=== PATIENT | female | born 1970 | race Caucasian/White ===

== ENCOUNTER 2017-10-12 07:55 | Emergency (ER) | payer OTHER ==
[~2017-10-12] VITALS: Ht 162.6 cm; Wt 54.4 kg
[2017-10-12] MEDS ORDERED: ONDANSETRON HCL 4 MG/2 ML VIAL IV ONE ×2 (08:45→12:30)
[2017-10-12] MEDS ORDERED: SODIUM CHLORIDE 0.9% 1,000 ML IV ONE (08:45)
[2017-10-12] MEDS ORDERED: NALBUPHINE HCL 10 MG/1ml INJECTION IV ONE (08:45)
[2017-10-12] MEDS ORDERED: MORPHINE SULFATE 4 MG/ML SYR/VIAL IV ONE ×2 (09:00→12:30)
[2017-10-12 09:58] LABS: Basophils # (auto) 0 uL; Eosinophils # (auto) 0 uL; Hematocrit 46.1 % (36.0-46.0); Hemoglobin 15.1 g/dL (12.2-16.2); Lymphocytes # (auto) 1.4 uL; Lymphocytes % (auto) 15.9 % (10.0-50.0); Mean Corpuscular Hemoglobin 28.2 pg (28.0-32.0); Mean Corpuscular Hgb Conc. 32.7 g/dL (32.0-36.0); Mean Corpuscular Volume 86.3 fL (80.0-100.0); Monocytes # (auto) 0.5 uL; Neutrophils # (auto) 6.9 uL; Neutrophils % (auto) 78.1 % (37.0-80.0); Platelet Count (auto) 429 10^3/uL (140-450); Red Blood Cells 5.34 10^6/uL (4.0-5.20); Red Cell Distribution Width 13.7 % (11.8-14.3); White Blood Cell 8.8 10^3/uL (4.4-10.8)
[2017-10-12 10:26] LABS: Albumin 3.2 g/dL (3.4-5.0); BUN/Creatinine Ratio 13.2; Bilirubin, Total 0.3 mg/dL (0.2-1.0); Calcium 8.9 mg/dL (8.5-10.1); Total Protein 7.5 g/dL (6.4-8.2)
[2017-10-12 10:39] LABS: Urine Bacteria NONE SEEN /hpf (None Seen); Urine Blood 2+ /uL (Negative); Urine Specific Gravity 1.009 (1.001-1.035); Urine WBC 1 /hpf (0 - 5)
[2017-10-12 11:04] LABS: Alcohol, Urine < 3.0 mg/dL (0-5); Amphetamine Screen, Urine NEGATIVE (NEGATIVE); Barbiturate Scree,Urine NEGATIVE (NEGATIVE); Benzodiazephine Screen, Urine NEGATIVE (NEGATIVE); Cannabinoid Screen, Urine POSITIVE (NEGATIVE); Cocaine Screen, Urine NEGATIVE (NEGATIVE); Opiate Scree,Urine POSITIVE (NEGATIVE); Phencyclidine Screen, Urine NEGATIVE (NEGATIVE)
[2017-10-12 12:39] VITALS: BP 127/71
== END 2017-10-12 13:17 | disposition home or self-care (01) ==
LOC: EDUNIT# 07:55 → ER 07:55
DX: N20.0 Calculus of kidney (principal); M19.90 Unspecified osteoarthritis, unspecified site; F17.210 Nicotine dependence, cigarettes, uncomplicated; F19.10 Other psychoactive substance abuse, uncomplicated; Z90.49 Acquired absence of other specified parts of digestive tract; Z90.710 Acquired absence of both cervix and uterus; Z87.442 Personal history of urinary calculi
CPT/HCPCS: 36415; 74176; 80053; 80307; 81001; 82150; 83690; 85025; 96361; 96374; 96375; 96376; 99285; J2270; J2300; J2405; J7030

== ENCOUNTER 2019-11-10 19:14 | Inpatient (IN) | payer MEDICAID, OTHER ==
[~2019-11-10] VITALS: Ht 160 cm; Wt 55.3 kg
[2019-11-10] MEDS ORDERED: ETOMIDATE (2MG/ML) 20ML VIAL IV ONE ×2 (19:24→21:45)
[2019-11-10] MEDS ORDERED: SUCCINYLCHOLINE CHLORIDE 20 MG/ML 10ML VIAL IV ONE ×2 (19:25→21:45)
[2019-11-10] MEDS ORDERED: SODIUM CHLORIDE 0.9% 1,000 ML IVB ONE (19:25)
[2019-11-10] MEDS: MIDAZOLAM DRIP 50 mg/50mL 50 ML IV SCH (19:37)
[2019-11-10] MEDS ORDERED: MIDAZOLAM DRIP 50 mg/50mL 50 ML IV ONE (19:40)
[2019-11-10] MEDS ORDERED: NOREPINEPHRINE 8 MG/250ML KIT 250 ML IV ONE (19:40)
[2019-11-10] MEDS: fentaNYL Drip 2500mCg/250mlNS 250 ML IV SCH (19:42)
[2019-11-10] MEDS ORDERED: fentaNYL Drip 2500mCg/250mlNS 250 ML IV ONE (19:47)
[2019-11-10] MEDS ORDERED: PROPOFOL 100 ML IV ONE (20:19)
[2019-11-10] MEDS: PROPOFOL 100 ML IV SCH (20:20)
[2019-11-10] MEDS: NOREPINEPHRINE 8 MG/250ML KIT 250 ML IV SCH (20:55)
[2019-11-10 21:47] LABS: Hematocrit 31.9 % (36.0-46.0); Hemoglobin 10.7 g/dL (12.2-16.2); Mean Corpuscular Hemoglobin 29.6 pg (28.0-32.0); Mean Corpuscular Hgb Conc. 33.5 g/dL (32.0-36.0); Mean Corpuscular Volume 88.3 fL (80.0-100.0); Platelet Count (auto) 154 10^3/uL (140-450); Red Blood Cells 3.61 10^6/uL (4.0-5.20); Red Cell Distribution Width 14.5 % (11.8-14.3); White Blood Cell 12.2 10^3/uL (4.4-10.8)
[2019-11-10 22:00] LABS: Basophils % (manual) 0 (0.0-2.0); Blast Cells 0; Eosinophils % (manual) 0 (0-7); Metamyelocytes % 0; Myelocytes % 0; Promyelocytes % 0; Reactive Lymphocytes 0
[2019-11-10 22:07] LABS: Albumin 2.3 g/dL (3.4-5.0); Calcium 7.2 mg/dL (8.5-10.1); Magnesium 1.9 mg/dL (1.6-2.6); Potassium 3.7 mmol/L (3.5-5.1)
[2019-11-10 22:18] LABS: BUN/Creatinine Ratio 16.7; Bilirubin, Total 0.8 mg/dL (0.2-1.0)
[2019-11-10 22:23] LABS: Band Neutrophils % (manual) 3; Lymphocytes % (manual) 3 (10.0-50.0); Monocytes % (manual) 2 (0-12)
[2019-11-10 22:27] LABS: INR 1.34 (0.9-1.15); Partial Thromboplastin Time 28.5 sec (23.64-32.05)
[2019-11-10 23:56] VITALS: BP 117/88
[2019-11-11] VITALS (48 sets, daily range): BP systolic 89–119; BP diastolic 53–87
[2019-11-11 01:00] LABS: Urine Bacteria FEW /hpf (None Seen); Urine Blood Negative /uL (Negative); Urine Hyaline Cast MANY /lpf (0 - 2); Urine Mucus FEW (None Seen); Urine Specific Gravity 1.026 (1.001-1.035); Urine WBC 5 /hpf (0 - 5)
[2019-11-11 01:01] LABS: Urine Amorphous Crystal FEW /hpf (None Seen)
[2019-11-11 01:13] LABS: Amphetamine Screen, Urine NEGATIVE (NEGATIVE); Barbiturate Scree,Urine POSITIVE (NEGATIVE); Benzodiazephine Screen, Urine NEGATIVE (NEGATIVE); Cannabinoid Screen, Urine NEGATIVE (NEGATIVE); Cocaine Screen, Urine NEGATIVE (NEGATIVE); Phencyclidine Screen, Urine NEGATIVE (NEGATIVE)
[2019-11-11 01:21] LABS: Opiate Scree,Urine POSITIVE (NEGATIVE)
[2019-11-11 01:28] LABS: Alcohol, Urine < 3.0 mg/dL (0-10)
[2019-11-11] MEDS ORDERED: SODIUM CHLORIDE 0.9% 1,000 ML IV SCH ×2 (02:46→15:30)
[2019-11-11] MEDS ORDERED: ACETAMINOPHEN 325 MG TAB PO PRN (03:00)
[2019-11-11] MEDS ORDERED: NITROGLYCERIN 0.4 MG SL TAB SL PRN (03:00)
[2019-11-11] MEDS ORDERED: VANCOMYCIN PER PHARMACY 0 MG IV SCH (03:00)
[2019-11-11] MEDS ORDERED: ONDANSETRON HCL 4 MG/2 ML VIAL IV PRN (03:00)
[2019-11-11] MEDS ORDERED: MORPHINE SULF INJ 2 MG/ML SYRINGE 1ML IV PRN (03:00)
[2019-11-11] MEDS ORDERED: IOHEXOL 350 MG/ML 100ML IJ ONE (03:08)
[2019-11-11] MEDS ORDERED: VANCOMYCIN 1GM/250ML 250 ML IV ONE (03:15)
[2019-11-11 03:58] LABS: Lactate Dehydrogenase 961 U/L (84-246)
[2019-11-11 03:59] LABS: CRP High Sensitivity > 19 mg/dL (< 0.3)
[2019-11-11] MEDS ORDERED: ALBUTEROL SULF HFA 90MCG INH 200DOSE IN SCH (06:00)
[2019-11-11] MEDS: PIPERACILLIN-TAZOB 3.375GM 100 ML IV SCH ×3 (06:05→18:48)
[2019-11-11] MEDS ORDERED: CHOLECALCIFEROL (VITD3) 1,000IU=25mCg TAB PO SCH (10:00)
[2019-11-11] MEDS ORDERED: ENOXAPARIN SOD 40 MG/0.4 ML SYRINGE SC SCH (10:00)
[2019-11-11] MEDS ORDERED: ZINC SULFATE 220mg CAP or TAB PO SCH (10:00)
[2019-11-11] MEDS: ENOXAPARIN SOD 40 MG/0.4 ML SYRINGE SC SCH (10:43)
--- NOTE | 2019-11-11 14:43 | NUR ---
RT NOTE: ETS FOR SMALL, THICK, CREAM/WALL COLORED SECRETIONS. GAG/COUGH NOTED.
--- NOTE | 2019-11-11 14:45 | NUR ---
RT NOTE: PT. TRANSFERRED TO ICU 105 WITH JORDAN BALLESTEROS WITHOUT INCIDENT. ART THERAPY CERTIFIED SUPERVISOR IN PLACE. PT. BAGGED WITH 15L O2. PT. PLACED ON VENT IN 105 WITH ORDERED SETTINGS.
--- NOTE | 2019-11-11 15:00 | NUR ---
Admit to ICU from ER on vent CASE,VIOLET admitted to ICU via gurney on potline monitor, intubated and being bagged by Respiratory Therapist. Patient transferred to bed, connected to mechanical ventilator by therapist, SOLANGE at bedside. Patient connected to ICU monitoring, weighed by bedscale, oriented to Carmen Shook, primary RN, unit, ventilator and sedation. Patient noted to be using accessory muscles and increased work of breathing along with increased respirations, sedation will be increased per protocol. Comfort measures applied, fall and safety precautions in place. Rectal temperature reading 100.2, cooling measures applied, will continue to monitor.
[2019-11-11] MEDS: PROPOFOL 100 ML IV SCH ×2 (15:31→21:36)
[2019-11-11] MEDS: MIDAZOLAM DRIP 50 mg/50mL 50 ML IV SCH ×3 (15:32→21:33)
--- NOTE | 2019-11-11 15:48 | NUR ---
PALS SPECIALIST AT BEDSIDE
[2019-11-11] MEDS: VANCOMYCIN 1GM/250ML 250 ML IV SCH (16:38)
--- NOTE | 2019-11-11 16:45 | NUR ---
CONTACT FAMILY FOR COMPLETION OF ADMISSION ASSESSMENT SPOKE WITH PATIENT'S SPOUSE LEANN AFTER PASSWORD VERIFICATION. LEANN PROVIDED NECESSARY INFORMATION, HOWEVER, UNABLE TO PROVIDE LIST OF CURRENT MEDICATIONS - LEANN STATED "I CANNOT FIND THE BOTTLES, MAYBE THEY ARE IN HER PURSE". WILL ENDORSE MEDICATION RECONCILIATION TO MARKETING PR INTERN RN.
[2019-11-11] MEDS: IPRATROPIUM BROM 0.5 MG/2.5ML INH SOL NEB SCH ×2 (17:42→21:58)
[2019-11-11] MEDS: ALBUTEROL SULF 2.5 MG/0.5ML(0.5%) NEB SOLN NEB SCH ×2 (17:42→21:58)
[2019-11-11] MEDS: fentaNYL Drip 2500mCg/250mlNS 250 ML IV SCH (18:01)
--- NOTE | 2019-11-11 19:00 | NUR ---
END OF SHIFT NOTE PATIENT MECHANICALLY VENTILATED, SEDATED, NO DISTRESS NOTED, RESPIRATIONS EVEN AND UNLABORED. NO S/S OF PAIN OR DISCOMFORT NOTED. FALL AND SAFETY PRECAUTIONS IN PLACE, ENDORSED CONTINUED CARE TO MANAGER SUPPLY CHAIN PLANNING RN.
[2019-11-11] MEDS: NOREPINEPHRINE 8 MG/250ML KIT 250 ML IV SCH (19:35)
--- NOTE | 2019-11-11 20:00 | NUR ---
OPEN ASSUMED CARE OF FEMALE PT ORALLY INTUBATED. PT SEDATED ON VERSED GTT 15 MG/HR, FENTANYL GTT 200 MCG/HR, AND PROPOFOL GTT 50 MCG/KG/MIN. PT GRIMACE TO TACTILE STIMULI OTHERWISE NON RESPONSIVE. SINUS TACH ON SPECIAL EDUCATION AIDE. LEVOPHED GTT INFUSING AT 3 MCG/MIN. GTT'S RUNNING INTO R SUBCLAVIAN TLC ALL PORTS PATENT. DRESSING CDI. 22 G IV'S PRESENT TO FRANCISCA FEET S/L B &P. OGT IN PLACE CLAMPED. R. UPPER LATERAL CHEST TUBE IN PLACE TO 20 CM SUCTION. NO DRAINAGE OBSERVED. NO AIR LEAK PRESENT. NO CREPITUS PALPATED. ATRIUM COLLECTION UNIT SECURED TO FLOOR. DRESSING TO CHEST TUBE INSERTIONS SITE CDI. VÁZQUEZ TO GRAVITY DRAINING CLEAR YELLOW URINE. BED IN LOWEST LOCKED POSITION. SIDE RAILS UP X 2. HOB ELEVATED 30 DEGREES. ORAL CARE PROVIDED. PT REPOSITIONED WITH PILLOWS USED TO OFFLOAD BONY PROMINENCES. NO INDICATION OF PAIN OBSERVED. PT IN FULL VIEW OF RN STATION. WILL CONTINUE TO MONITOR.
--- NOTE | 2019-11-11 20:45 | NUR ---
FAMILY CALL PT SISTER CALLED UNIT FOR UPDATE ON PT CONDITION. AFTER PASSWORD FOR PHONE GIVEN. UPDATE PROVIDED. ALL QUESTIONS AND CONCERNS ADDRESSED.
[2019-11-12] VITALS (105 sets, daily range): BP systolic 78–132; BP diastolic 42–87
--- NOTE | 2019-11-12 00:45 | NUR ---
TEMP PT WITH RECTAL TEMP 100.2 ICE PAKS PLACED TO FRANCISCA AXILLA AND FRANCISCA GROIN. FAN IN PLACE. WILL CONTINUE TO CLOSELY MONITOR.
[2019-11-12] MEDS: MIDAZOLAM DRIP 50 mg/50mL 50 ML IV SCH ×3 (02:36→18:57)
[2019-11-12] MEDS: IPRATROPIUM BROM 0.5 MG/2.5ML INH SOL NEB SCH ×6 (02:36→22:12)
[2019-11-12] MEDS: ALBUTEROL SULF 2.5 MG/0.5ML(0.5%) NEB SOLN NEB SCH ×6 (02:36→22:12)
--- NOTE | 2019-11-12 04:15 | NUR ---
Patient bathe/linen change Patient given complete bath. Skin integrity assessed for any changes. Linens changed. Patient repositioned for comfort.
[2019-11-12 04:35] LABS: Basophils # (auto) 0 10 ^3/uL (0-0.2); Basophils % (auto) 0.1 % (0.0-2.0); Eosinophils # (auto) 0 10 ^3/uL (0-0.8); Hemoglobin 10.8 g/dL (12.2-16.2); Lymphocytes # (auto) 0.8 10 ^3/uL (0.4-5.4); Lymphocytes % (auto) 8.6 % (10.0-50.0); Mean Corpuscular Hemoglobin 29.8 pg (28.0-32.0); Mean Corpuscular Hgb Conc. 33.6 g/dL (32.0-36.0); Mean Corpuscular Volume 88.7 fL (80.0-100.0); Monocytes # (auto) 0.4 10 ^3/uL (0-1.3); Monocytes % (auto) 3.9 % (0.0-12.0); Neutrophils # (auto) 8.3 10 ^3/uL (1.6-8.6); Neutrophils % (auto) 87.4 % (37.0-80.0); Nucleated Red Blood Cells % 0.1 %; Platelet Count (auto) 128 10^3/uL (140-450); Red Blood Cells 3.61 10^6/uL (4.0-5.20); Red Cell Distribution Width 14.9 % (11.8-14.3); White Blood Cell 9.5 10^3/uL (4.4-10.8)
[2019-11-12 04:42] LABS: INR 1.17 (0.9-1.15)
[2019-11-12 04:49] LABS: Potassium 3.1 mmol/L (3.5-5.1)
[2019-11-12 04:59] LABS: Albumin 1.9 g/dL (3.4-5.0); BUN/Creatinine Ratio 13.2; Bilirubin, Total 0.4 mg/dL (0.2-1.0); Calcium 7.3 mg/dL (8.5-10.1); Total Protein 4.7 g/dL (6.4-8.2)
[2019-11-12] MEDS: VANCOMYCIN 1GM/250ML 250 ML IV SCH ×2 (05:18→17:29)
[2019-11-12] MEDS: PROPOFOL 100 ML IV SCH ×3 (05:19→17:57)
[2019-11-12] MEDS: PIPERACILLIN-TAZOB 3.375GM 100 ML IV SCH ×4 (06:00→18:02)
--- NOTE | 2019-11-12 06:13 | NUR ---
ADINA JEFF PAGED RE: K+ 3.1. AWAIT C/B.
--- NOTE | 2019-11-12 06:30 | NUR ---
ADINA JEFF CALLED UNIT UPDATED FEATHERER REGARDING AM K+ 3.1. ORDERS RECEIVED.
[2019-11-12] MEDS ORDERED: POTASSIUM CHL 20MEQ/100ML 100 ML IV ONE ×2 (06:45→06:48)
[2019-11-12] MEDS: fentaNYL Drip 2500mCg/250mlNS 250 ML IV SCH ×2 (06:46→18:56)
[2019-11-12] MEDS: NOREPINEPHRINE 8 MG/250ML KIT 250 ML IV SCH ×2 (06:58→19:44)
--- NOTE | 2019-11-12 07:30 | NUR ---
REPORT RECEIVED FROM BRADLY RNMARISSA. BEDSIDE CHECK DONE.
--- NOTE | 2019-11-12 08:30 | NUR ---
PT TEACHING PT UNABLE TO BENEFIT FROM PT TEACHING AT THIS TIME SHE IS INTUBATED AND SEDATED. Addendum: 11/12/19 at 1950 by Brissa Rodrigues RN Amended: Links added.
--- NOTE | 2019-11-12 08:30 | NUR ---
ASSESSMENT PT RESTING IN BED WITH EYES CLOSED AND SEDATED WHILE INTUBATED. NO SPONTANEOUS MOVEMENT NOTED. ON THE VENTILATOR WITH SETTINGS: 7 FR ETT/ 22 AT THE LIP, TV 400, 60% FIO2, AC 16 AND PEEP OF 3. LUNGS WITH EXPIRATORY CRACKLES NOTED ON THE LEFT AN DCLEAR AND DIMINISHED ON THE RIGHT. O2 SAT OF 93%. TELE ST 114. PALPABLE PULSES TO ALL EXTREMITIES. NO EDEMA NOTED. ABD SOFT WITH HYPOACTIVE BOWEL SOUNDS NOTED. OGT WITH PLACEMENT VERIFIED AND NO RESIDUAL NOTED. LAST BM UNKNOWN. VÁZQUEZ CATHETER DRAINING CLEAR YELLOW URINE. TURNED FOR COMFORT AND PT WITH SACRAL OPTIFOAM IN PLACE AND SKIN UNDER IS CLEAR. PT CURRENTLY ON LEVOPHED FOR BP SUPPORT.
--- NOTE | 2019-11-12 09:00 | NUR ---
PT WITH LOW BPS AND TITRATING LEVOPHED PER PROTOCOL.
--- NOTE | 2019-11-12 10:15 | NUR ---
BP 83/56 AND LEVOPHED AT 9 MCG. CONTINUE TO MONITOR AND TITRATE.
[2019-11-12] MEDS: ENOXAPARIN SOD 40 MG/0.4 ML SYRINGE SC SCH (10:20)
[2019-11-12] MEDS: PANTOPRAZOLE 40 MG/10 ML VIAL INJ IV SCH (10:20)
--- NOTE | 2019-11-12 11:30 | NUR ---
PT SEEN AND EXAMINED BY DR JOHNS. BEDSIDE ULTRASOUND DONE TO EVALUATE PNEUMOTHORAX.
--- NOTE | 2019-11-12 12:00 | NUR ---
BP OF 100/68 WITH LEVOPHED AT 13 MCG. CONTINUE TO MONITOR.
[2019-11-12] MEDS: SODIUM CHLORIDE 0.9% 1,000 ML IV SCH (13:33)
--- NOTE | 2019-11-12 14:00 | NUR ---
BP REMAINS STABLE ON LEVOPHED AT 13 MCG. ABLE TO TITRATE DOWN ON SEDATION PT TOLERATES.
--- NOTE | 2019-11-12 18:00 | NUR ---
HAVE BEEN TITRATING DOWN N SEDATION MEDS THROUGHOUT THE DAY PT TOLERATED. REMAINS ON LEVOPHED AT 13 MCG. CONTINUE TO MONITOR,
--- NOTE | 2019-11-12 18:40 | NUR ---
PT'S CALLED AND AFTER VERIFYING PASSWORD, I UPDATED HIM AND ANSWERED HIS QUESTIONS.
--- NOTE | 2019-11-12 19:30 | NUR ---
REPORT REPORT GIVEN TO MARISSA ABDULLAHI RN.
--- NOTE | 2019-11-12 20:00 | NUR ---
OPEN ASSUMED CARE OF FEMALE PT ORALLY INTUBATED. PT SEDATED ON VERSED GTT 10 MG/HR, FENTANYL GTT 175 MCG/HR, AND PROPOFOL GTT 35 MCG/KG/MIN. PT GRIMACE TO TACTILE STIMULI OTHERWISE NON RESPONSIVE. SINUS TACH ON MANAGER ATHLETICS. LEVOPHED GTT INFUSING AT 13 MCG/MIN. GTT'S RUNNING INTO R SUBCLAVIAN TLC ALL PORTS PATENT. DRESSING CDI. 20 G IV TO L. HAND S/L B&P. OGT IN PLACE CLAMPED. R. UPPER LATERAL CHEST TUBE IN PLACE TO 20 CM SUCTION. NO DRAINAGE OBSERVED. NO AIR LEAK PRESENT. NO CREPITUS PALPATED. ATRIUM COLLECTION UNIT SECURED TO FLOOR. DRESSING TO CHEST TUBE INSERTIONS SITE CDI. VÁZQUEZ TO GRAVITY DRAINING CLEAR YELLOW URINE. BED IN LOWEST LOCKED POSITION. SIDE RAILS UP X 2. HOB ELEVATED 30 DEGREES. ORAL CARE PROVIDED. PT REPOSITIONED WITH PILLOWS USED TO OFFLOAD BONY PROMINENCES. NO INDICATION OF PAIN OBSERVED. PT IN FULL VIEW OF RN STATION. WILL CONTINUE TO MONITOR.
--- NOTE | 2019-11-12 22:23 | NUR ---
FAMILY CALL PT DAUGHTER IN LAW CALLED FOR UPDATE ON PT CONDITION. AFTER PASSWORD FOR PHONE GIVEN. UPDATE PROVIDED. ALL QUESTIONS AND CONCERNS ADDRESSED.
[2019-11-13] VITALS (106 sets, daily range): BP systolic 85–152; BP diastolic 53–94
[2019-11-13] MEDS: MIDAZOLAM DRIP 50 mg/50mL 50 ML IV SCH ×3 (00:31→22:56)
[2019-11-13] MEDS: IPRATROPIUM BROM 0.5 MG/2.5ML INH SOL NEB SCH ×6 (02:04→22:32)
[2019-11-13] MEDS: ALBUTEROL SULF 2.5 MG/0.5ML(0.5%) NEB SOLN NEB SCH ×6 (02:04→22:32)
[2019-11-13] MEDS: PROPOFOL 100 ML IV SCH (03:00)
--- NOTE | 2019-11-13 03:00 | NUR ---
Patient bathe/linen change Patient given complete bath. Skin integrity assessed for any changes. Linens changed. Patient repositioned for comfort.
[2019-11-13] MEDS ORDERED: MORP30TA PO (04:57)
[2019-11-13] MEDS ORDERED: LORA0.5T12 PO (04:57)
[2019-11-13] MEDS ORDERED: HYDR2TAB58 PO (04:57)
[2019-11-13] MEDS: VANCOMYCIN 1GM/250ML 250 ML IV SCH ×2 (05:00→16:09)
[2019-11-13 05:02] LABS: Basophils # (auto) 0 10 ^3/uL (0-0.2); Basophils % (auto) 0.2 % (0.0-2.0); Eosinophils # (auto) 0 10 ^3/uL (0-0.8); Hematocrit 32.4 % (36.0-46.0); Hemoglobin 10.7 g/dL (12.2-16.2); Lymphocytes # (auto) 0.8 10 ^3/uL (0.4-5.4); Lymphocytes % (auto) 9.7 % (10.0-50.0); Mean Corpuscular Hemoglobin 29.5 pg (28.0-32.0); Mean Corpuscular Hgb Conc. 33.1 g/dL (32.0-36.0); Mean Corpuscular Volume 89.3 fL (80.0-100.0); Monocytes # (auto) 0.5 10 ^3/uL (0-1.3); Monocytes % (auto) 5.7 % (0.0-12.0); Neutrophils # (auto) 7.1 10 ^3/uL (1.6-8.6); Neutrophils % (auto) 84.4 % (37.0-80.0); Nucleated Red Blood Cells % 0.1 %; Platelet Count (auto) 152 10^3/uL (140-450); Red Blood Cells 3.63 10^6/uL (4.0-5.20); Red Cell Distribution Width 15.1 % (11.8-14.3); White Blood Cell 8.4 10^3/uL (4.4-10.8)
[2019-11-13 05:15] LABS: INR 1.04 (0.9-1.15)
[2019-11-13 05:21] LABS: Albumin 1.8 g/dL (3.4-5.0); Calcium 7.5 mg/dL (8.5-10.1); Magnesium 2.1 mg/dL (1.6-2.6); Potassium 3.6 mmol/L (3.5-5.1)
[2019-11-13 05:27] LABS: BUN/Creatinine Ratio 11.1; Bilirubin, Total 0.4 mg/dL (0.2-1.0); Total Protein 5.2 g/dL (6.4-8.2)
[2019-11-13] MEDS: PIPERACILLIN-TAZOB 3.375GM 100 ML IV SCH ×5 (06:00→23:40)
[2019-11-13] MEDS: NOREPINEPHRINE 8 MG/250ML KIT 250 ML IV SCH ×2 (06:56→19:07)
--- NOTE | 2019-11-13 10:00 | NUR ---
PATIENT IN DEEP SEDATION - DECREASING VERSED Addendum: 11/13/19 at 1147 by Amelia Greene RN Amended: Links added.
[2019-11-13] MEDS: PANTOPRAZOLE 40 MG/10 ML VIAL INJ IV SCH (10:54)
[2019-11-13] MEDS: ENOXAPARIN SOD 40 MG/0.4 ML SYRINGE SC SCH (11:00)
--- NOTE | 2019-11-13 12:05 | NUR ---
Respiratory note: TITRATED FIO2 TO 35%.
--- NOTE | 2019-11-13 13:03 | NUR ---
Page placed out to Dr. Garner to ask if patient stable for transfer to [place]. Addendum: 11/13/19 at 1539 by Nubia Hernandez [facility] Per Dr. Norton patient is not stable for transfer to [place] today (Dr. Garner not in today).
--- NOTE | 2019-11-13 13:08 | NUR ---
Nutrition Assessment Note: please see attached link for complete assessment Est energy needs BW 55 [id number] kcal (25-30 kcal/kg BW) Est protein needs 55-71g (1.0-1.3g/kg BW r/t hypoalb) Will reassess prn Rec: EN support with Jevity 1.2 @ 50 ml./hr Addendum: 11/13/19 at [address] Amended: Links added.
--- NOTE | 2019-11-13 14:10 | NUR ---
PATIENT'S DAUGHTER PHONES -GIVEN UPDATE ON PATIENT CONDITION - VERBALIZES UNDERSTANDING. Addendum: 11/14/19 at 0806 by Amelia Greene RN Per blurb writer's request - patient's daughter states she will call blurb writer today with a list of home meds. States she is on 'thyroid meds' at home.
[2019-11-13] MEDS: ACETYLCYSTEINE 10 %(100MG/ML) SOL 4ML NEB SCH ×3 (14:13→22:32)
[2019-11-13] MEDS ORDERED: Jevity 1.2 Cal/Fiber 1 Liter GT SCH (14:15)
[2019-11-13] MEDS: ALBUMIN 25% 100 ML IV SCH ×2 (14:22→21:30)
--- NOTE | 2019-11-13 14:30 | NUR ---
TEMP 100.6 -M COOLING MEASURES APPLIED - WITH ICE PACKS AND FAN - WILL CONTINUE TO MONITOR TEMP.
--- NOTE | 2019-11-13 15:05 | NUR ---
DR BORJA VISITS AND EXAMINES PATIENT - ORDERS RECEIVED.
--- NOTE | 2019-11-13 15:15 | NUR ---
assessment Patient is a 49 year old female who is on a vent in ICU. Per patients Dayron prior to admission patient lived home with him and was independent. Patient does have oxygen and a nebulizer for home use. Per Dayron patient had been sick for a few days and was getting worse. Patient was having severe shortness of breath so he called Addendum: 11/13/19 at 1519 by Kenya STARKEY Amended: Links added.
--- NOTE | 2019-11-13 15:17 | NUR ---
assessment Patient is a 49 year old female who is on a vent in ICU. Per patients Dayron prior to admission patient lived home with him and was independent. Patient does have oxygen and a nebulizer for home use. Per Dayron patient had been sick for a few days and was getting worse. Patient was having severe shortness of breath so he called 911 and patient was admitted and intubated. Patients PCP is at the [facility]. Dayron agrees to transfer if [place] ask for patient to be in network. I informed Dayron patients post discharge needs to be determined after extubation and prior to discharge. Dayron verbalized understanding. Addendum: 11/13/19 at 1519 by Kenya STARKEY Amended: Links added.
[2019-11-13] MEDS: SODIUM CHLORIDE 0.9% 1,000 ML IV SCH (16:15)
--- NOTE | 2019-11-13 17:02 | NUR ---
DR YOUNG VISITS AND EXAMINES PATIENT - ORDERS RECEIVED.
--- NOTE | 2019-11-13 18:20 | NUR ---
PATIENT'S PHONES - UPDATED ON PATIENT CONDITION - VERBALIZES UNDERSTANDING. STAFF FIELD ENGINEER ALSO EXPLAINED BRONCHOSCOPY PROCEDURE PLANNED FOR TOMORROW AM AND NEED FOR CONSENT. DR YOUNG PRESENT AND EXPLAINED PROCEDURE TO PATIENT'S IN DETAIL - ALL QUESTIONS ANSWERED - CONSENT OBTAINED.
--- NOTE | 2019-11-13 18:45 | NUR ---
TEMP 97.0- WARM BLANKETS AND HEAT LAMP APPLIED - WILL MONITOR.
[2019-11-13] MEDS: BUDESONIDE (INHALATION) 0.5 MG/2 ML NEB NEB SCH (18:46)
--- NOTE | 2019-11-13 19:00 | NUR ---
Opening notes Assumed care, on vent, sedation and levophed drips all infusing in the right subclavian area, OGT infusing jevity feeding @ 10ml/hr, turner catheter draining to a clear urine. Bed in lowest position with side rails up, bed alarm on. Will continue care.
--- NOTE | 2019-11-13 21:30 | NUR ---
Received a call from dtr in law, updated on pt's status and POC, all questions and concerns were addressed, verbalized understanding.
[2019-11-13] MEDS: fentaNYL Drip 2500mCg/250mlNS 250 ML IV SCH (23:51)
[2019-11-14] VITALS (103 sets, daily range): BP systolic 84–149; BP diastolic 53–103
[2019-11-14] MEDS: VANCOMYCIN 1GM/250ML 250 ML IV SCH ×3 (01:06→20:32)
[2019-11-14] MEDS: ALBUTEROL SULF 2.5 MG/0.5ML(0.5%) NEB SOLN NEB SCH ×6 (01:52→22:03)
[2019-11-14] MEDS: ACETYLCYSTEINE 10 %(100MG/ML) SOL 4ML NEB SCH ×6 (01:52→22:03)
[2019-11-14] MEDS: IPRATROPIUM BROM 0.5 MG/2.5ML INH SOL NEB SCH ×6 (01:52→22:03)
--- NOTE | 2019-11-14 02:30 | NUR ---
TF off, 70 ml residual noted, prep for bronchoscopy
--- NOTE | 2019-11-14 04:00 | NUR ---
Patient bathe/linen change Patient given complete bath. Skin integrity assessed for any changes. Linens and gown changed. Patient repositioned for comfort.
[2019-11-14 04:34] LABS: Calcium 8.1 mg/dL (8.5-10.1)
[2019-11-14 04:36] LABS: BUN/Creatinine Ratio 5.1
[2019-11-14 04:40] LABS: Potassium 2.7 mmol/L (3.5-5.1)
--- NOTE | 2019-11-14 04:45 | NUR ---
Persistent coughing and gagging noted, HR 120-130's, sedation increased, propofol @ 40 mcg/min, versed @ 10 mg/hr, fentanyl still @ 175 mcg/h. Suctioning of secretions done prn.
--- NOTE | 2019-11-14 04:48 | NUR ---
Temp 100.2, continuous cooling measures done
--- NOTE | 2019-11-14 05:07 | NUR ---
PAGED THE HOSPITALIST FOR K 2.7
--- NOTE | 2019-11-14 05:10 | NUR ---
DR. MAC CALLED BACK AND GAVE ORDERS FOR K-RIDER 60 MEQ IV THEN RECHECK POTASSIUM LEVEL AT 12N. WILL CARRY OUT ORDERS RBO AFTER BEING VERIFIED.
[2019-11-14] MEDS: ALBUMIN 25% 100 ML IV SCH (05:24)
[2019-11-14] MEDS: PIPERACILLIN-TAZOB 3.375GM 100 ML IV SCH ×4 (05:35→23:51)
[2019-11-14] MEDS: POTASSIUM CHL 20MEQ/100ML 100 ML IV SCH ×3 (05:36→09:28)
--- NOTE | 2019-11-14 05:37 | NUR ---
KCL 20 Meq, 1/3 started IV as ordered
--- NOTE | 2019-11-14 05:50 | NUR ---
Received a call from pt's , updated on pt's status and POC, all questions and concerns were addressed, verbalized understanding
[2019-11-14] MEDS: BUDESONIDE (INHALATION) 0.5 MG/2 ML NEB NEB SCH ×2 (07:10→18:40)
[2019-11-14] MEDS: MIDAZOLAM DRIP 50 mg/50mL 50 ML IV SCH ×2 (07:42→19:28)
--- NOTE | 2019-11-14 09:00 | NUR ---
NO SEDATION VACATION DUE TO PENDING BRONCHOSCOPY. Addendum: 11/14/19 at 2023 by Amelia Greene RN Amended: Links added.
[2019-11-14] MEDS: PROPOFOL 100 ML IV SCH ×2 (09:11→17:19)
[2019-11-14] MEDS ORDERED: ROCURONIUM 10MG/ML 10ML VIAL IV ONE (10:26)
--- NOTE | 2019-11-14 10:45 | NUR ---
DR BORJA VISITS AND EXAMINES PATIENT - ORDERS RECEIVED.
[2019-11-14] MEDS: PANTOPRAZOLE 40 MG/10 ML VIAL INJ IV SCH (11:06)
[2019-11-14] MEDS: SODIUM CHLORIDE 0.9% 1,000 ML IV SCH ×2 (11:07→19:56)
[2019-11-14] MEDS ORDERED: GLYCOPYRROLATE 0.2 MG/ML 1ML VIAL ONE (11:13)
[2019-11-14] MEDS ORDERED: LIDOCAINE 2%HCL (LOCAL ANESTH.) INJ 20ML MDV ONE (11:13)
[2019-11-14] MEDS ORDERED: LIDOCAINE HCL 2% TOP JELLY 5ML TOP ONE (11:13)
[2019-11-14] MEDS ORDERED: SODIUM CHLORIDE LOCK 0 ML ONE (11:13)
[2019-11-14] MEDS ORDERED: EPINEPHrine HCL 1 MG/1 ML AMP ONE (11:13)
--- NOTE | 2019-11-14 11:45 | NUR ---
ETT CHANGE TO 8.0 DURING BRONCHOSCOPY AT BEDSIDE - PATIENT ETHAN WELL - SEE PROCEDURE NOTES FROM DR YOUNG.
[2019-11-14] MEDS: MICAFUNGIN SODIUM 100 MG in SODIUM CHL 0.9% 100 ML IV SCH (11:58)
[2019-11-14 12:38] LABS: Magnesium 2.1 mg/dL (1.6-2.6)
[2019-11-14 12:42] LABS: Phosphorus 0.9 mg/dL (2.5-4.90)
--- NOTE | 2019-11-14 12:47 | NUR ---
LAB INFORMED ANALYST MICROBIOLOGY LAB OF CRITICAL LOW PHOS 0.8 - ANALYST MICROBIOLOGY LAB NOTIFIED DR RIVERA - ORDERS RECEIVED.
--- NOTE | 2019-11-14 12:49 | NUR ---
PATIENT'S AND DAUGHTER IN LAW PHONED FOR UPDATE ON PATIENT CONDITION - BOTH VERBALIZED UNDERSTANDING.
[2019-11-14] MEDS ORDERED: POTASSIUM PHOSPHATE 44 MEQ in D5W 5% 250 ML IV ONE (13:00)
[2019-11-14 13:51] LABS: Basophils # (auto) 0 10 ^3/uL (0-0.2); Basophils % (auto) 0.1 % (0.0-2.0); Eosinophils # (auto) 0 10 ^3/uL (0-0.8); Hematocrit 30.2 % (36.0-46.0); Hemoglobin 10.1 g/dL (12.2-16.2); Lymphocytes # (auto) 0.9 10 ^3/uL (0.4-5.4); Lymphocytes % (auto) 22.9 % (10.0-50.0); Mean Corpuscular Hemoglobin 29.5 pg (28.0-32.0); Mean Corpuscular Hgb Conc. 33.4 g/dL (32.0-36.0); Mean Corpuscular Volume 88.4 fL (80.0-100.0); Monocytes # (auto) 0.5 10 ^3/uL (0-1.3); Monocytes % (auto) 13.6 % (0.0-12.0); Neutrophils # (auto) 2.5 10 ^3/uL (1.6-8.6); Neutrophils % (auto) 63.4 % (37.0-80.0); Nucleated Red Blood Cells % 0.2 %; Platelet Count (auto) 117 10^3/uL (140-450); Red Blood Cells 3.42 10^6/uL (4.0-5.20); Red Cell Distribution Width 14.9 % (11.8-14.3)
--- NOTE | 2019-11-14 14:30 | NUR ---
JEVITY TF RE-STARTED @ 20ML/HOUR -WILL MONITOR.
[2019-11-14] MEDS: fentaNYL Drip 2500mCg/250mlNS 250 ML IV SCH (15:05)
--- NOTE | 2019-11-14 17:00 | NUR ---
TF RESIDUAL 100ML - PLACED TF ON HOLD.
--- NOTE | 2019-11-14 17:48 | NUR ---
WOUND CARE NOTE: Added patient to wound care monitoring list due to Low Edi score of 11 and intubation status, putting patient to high risk for skin breakdown. Patient is 49 years old female with admitting diagnosis of Acute Resp Failure. Patient is resting in ICU bed in Rm. 105. Patient is intubated, sedated and mechanically ventilated. Patient appears to be in no pain using Avelar Pace Faces Pain Scale. No open wound noted other than small (0.8x0.5cm) forehead abrasion, area is clean and dry, asymptomatic, left open to air. She's receiving BID/PRN cleaning and application of Barrier cream to sacral, buttocks as preventative. RECOMMENDATION: Nursing to continue with BID/PRN cleaning and application of preventative Barrier cream to sacral, buttocks, frequent turning and repositioning schedule as condition permits, redistribute pressure points with pillows, elevate heels on pillows, continue monitoring by wound care while patient is intubated. Addendum: 11/14/19 at 1822 by Fanta Ramon RN Amended: Links added.
[2019-11-14] MEDS: NOREPINEPHRINE 8 MG/250ML KIT 250 ML IV SCH (19:35)
--- NOTE | 2019-11-14 21:58 | NUR ---
Spoke with Carol HUYNH regarding patient not tolerating tube feedings. He is aware. He recommends to keep her npo
--- NOTE | 2019-11-14 23:33 | NUR ---
notified md jaramillo of elevated heart rate and persistent temperature of greater than 101.0 . orders received. Will carry out orders per hospital policy and protocol.
[2019-11-14] MEDS ORDERED: ACETAMINOPHEN 120 MG RECT SUPP PR ONE (23:45)
[2019-11-14] MEDS: METOPROLOL TARTRATE 1MG/1ML-5ML VIAL IV SCH (23:47)
[2019-11-15] VITALS (58 sets, daily range): BP systolic 77–126; BP diastolic 40–97
[2019-11-15] MEDS: METOPROLOL TARTRATE 1MG/1ML-5ML VIAL IV SCH ×2 (00:18→00:35)
[2019-11-15] MEDS: MIDAZOLAM DRIP 50 mg/50mL 50 ML IV SCH ×3 (02:09→21:00)
[2019-11-15] MEDS: IPRATROPIUM BROM 0.5 MG/2.5ML INH SOL NEB SCH ×5 (02:39→18:35)
[2019-11-15] MEDS: ALBUTEROL SULF 2.5 MG/0.5ML(0.5%) NEB SOLN NEB SCH ×5 (02:40→18:35)
[2019-11-15] MEDS: ACETYLCYSTEINE 10 %(100MG/ML) SOL 4ML NEB SCH ×5 (02:40→18:35)
[2019-11-15] MEDS: PROPOFOL 100 ML IV SCH ×3 (04:07→21:00)
[2019-11-15] MEDS: PIPERACILLIN-TAZOB 3.375GM 100 ML IV SCH ×3 (04:08→18:07)
[2019-11-15 04:28] LABS: Basophils # (auto) 0 10 ^3/uL (0-0.2); Basophils % (auto) 0.1 % (0.0-2.0); Eosinophils # (auto) 0 10 ^3/uL (0-0.8); Hematocrit 34.5 % (36.0-46.0); Hemoglobin 11.6 g/dL (12.2-16.2); Lymphocytes # (auto) 0.9 10 ^3/uL (0.4-5.4); Lymphocytes % (auto) 12.9 % (10.0-50.0); Mean Corpuscular Hemoglobin 29.6 pg (28.0-32.0); Mean Corpuscular Hgb Conc. 33.7 g/dL (32.0-36.0); Mean Corpuscular Volume 87.6 fL (80.0-100.0); Monocytes # (auto) 0.7 10 ^3/uL (0-1.3); Monocytes % (auto) 10.2 % (0.0-12.0); Neutrophils # (auto) 5.5 10 ^3/uL (1.6-8.6); Neutrophils % (auto) 76.8 % (37.0-80.0); Nucleated Red Blood Cells % 0.1 %; Platelet Count (auto) 136 10^3/uL (140-450); Red Blood Cells 3.94 10^6/uL (4.0-5.20); Red Cell Distribution Width 14.6 % (11.8-14.3); White Blood Cell 7.1 10^3/uL (4.4-10.8)
[2019-11-15 04:43] LABS: Potassium 3.8 mmol/L (3.5-5.1)
[2019-11-15 04:47] LABS: Albumin 2.7 g/dL (3.4-5.0); BUN/Creatinine Ratio 8.5
[2019-11-15 04:54] LABS: Bilirubin, Total 0.6 mg/dL (0.2-1.0); Total Protein 5.8 g/dL (6.4-8.2)
[2019-11-15] MEDS: VANCOMYCIN 1GM/250ML 250 ML IV SCH ×2 (06:27→18:07)
[2019-11-15] MEDS: fentaNYL Drip 2500mCg/250mlNS 250 ML IV SCH ×2 (06:33→21:00)
--- NOTE | 2019-11-15 07:45 | NUR ---
Cooling Measures held Patient currently has temp of 97.0 , cooling measures held.
--- NOTE | 2019-11-15 09:00 | NUR ---
Chest tube dressing changed Site asymptomatic, sutures intact, chest tube at 10cm marker. Site cleansed with chlorhexidine swab, placed petroleum dressing at site, secured with 4x4 gauze, foam tape placed over site to secure in place. Suction remains at [facility] via water seal atrium chamber at [id number]. Patient tolerated well.
[2019-11-15] MEDS ORDERED: ENOXAPARIN SOD 40 MG/0.4 ML SYRINGE SC SCH (10:00)
[2019-11-15] MEDS: BUDESONIDE (INHALATION) 0.5 MG/2 ML NEB NEB SCH ×2 (10:07→18:36)
[2019-11-15] MEDS: PANTOPRAZOLE 40 MG/10 ML VIAL INJ IV SCH (10:59)
[2019-11-15] MEDS: MICAFUNGIN SODIUM 100 MG in SODIUM CHL 0.9% 100 ML IV SCH (11:00)
[2019-11-15] MEDS: SODIUM CHLORIDE 0.9% 1,000 ML IV SCH (11:01)
--- NOTE | 2019-11-15 11:11 | NUR ---
Tube feedings restarted Only 5cc of green stomach content. Placement of og verified via auscultation. Tf started at 15ml/hr. Aspiration precautions in place.
--- NOTE | 2019-11-15 11:13 | NUR ---
Respirtory status. As sedation has been decreased patients RR noted to increase from 20 breaths/min to 30. See iv spreadsheet. Sedation adjusted for comfort. Addendum: 11/15/19 at 1116 by Meagan Panda RN Heart rate also noted to increase to 120's.
[2019-11-15] MEDS ORDERED: POTASSIUM PHOSPHATE 26.4 MEQ in SODIUM CHL 0.9% 100 ML IV ONE (11:30)
--- NOTE | 2019-11-15 12:16 | NUR ---
Nutrition Followup Wt 55.33 kg Pt currently intubated, sedated with propofol @ 8.891 ml/hr providing 234 kcals from fats. pt is currently NPO, with EN feeds on hold due to high residuals last night per RN. per RN pt will restrt feeding soon Est energy needs BW 55 [id number] kcal (25-30 kcal/kg BW) Est protein needs 55-71g (1.0-1.3g/kg BW r/t hypoalb) Will reassess prn Labs: CA 8.0 L, ALB2.7 L, GLU 144 H BM: Pt with no BM noted per RN doc Skin: BS 11, high risk, full wound care details in RN doc PES: Altered nutrition related lab values r.t current chronic medical condition aeb hyperglycemia, hypocalcemia, severe hypoalb Impaired swallowing r.t current medical condition aeb pt`s intubated sedated with order of NPO Comments Will continue to closely monitor pertinent labs, NPO status and skin status prn. Will followup in 2-3 days 1) advance diet as medically feasible, 2) consider EN support with Jevity 1.2 @ 50 ml/hr per MD approval. 3) consider prostat 1 apcket bid. 4) continue current plan of care
[2019-11-15] MEDS ORDERED: FUROSEMIDE 40 MG/4 ML VIAL IV ONE (13:30)
[2019-11-15] MEDS ORDERED: ALBUMIN 25% 100 ML IV ONE (13:30)
[2019-11-15] MEDS ORDERED: POTASSIUM EFFERVESENT TAB 25 MEQ GT ONE (13:30)
--- NOTE | 2019-11-15 13:45 | NUR ---
Family updated on pt status Family of CASE,VIOLET updated on patient's status and condition. All questions and concerns addressed. Daughter in law, Talia verbalized understanding.
[2019-11-15] MEDS ORDERED: METOCLOPRAMIDE HCL 5MG/ml INJ 2ml VIAL IV SCH (14:00)
--- NOTE | 2019-11-15 14:00 | NUR ---
Dr. Norton at bedside Updated on plan of care. See new orders.
--- NOTE | 2019-11-15 14:05 | NUR ---
IMAGE TRANSFER REQUEST CD TO BE REORDERED WITH CT AND CXR WHEN BED AVAILABLE TO [facility] AWARE.
--- NOTE | 2019-11-15 15:25 | NUR ---
RISK ADVISOR S.S PAGED REL: TRANSFER ORDER.
--- NOTE | 2019-11-15 15:40 | NUR ---
Barb CALLED BACK. ALL FORMS ADVISED BY GABI FAXED OVER TO [facility] AT [phone]. # [phone].
--- NOTE | 2019-11-15 16:07 | NUR ---
Clinical update provided to [facility] Per Caroline, there are no beds available at [facility] or [facility]. Per [facility], patient can only be transferred if chest tube is to water seal only. Per dominatrix, ok for water seal at this time. Transfer center requesting to see if ok to transfer to [place], informed that patient is intubated/ sedated and unable to make that decision. Contact number to Bernard Padgett given for further consent.
--- NOTE | 2019-11-15 17:27 | NUR ---
Family updated on pt status Family of CASEVIOLET updated on patient's status and condition. All questions and concerns addressed. Dayron, verbalized understanding. aware of possible transfer to [facility] and has given consent. to orange picker patients jewelry and home medications along with purse. Only belongings are going to be cellphone thin film technician and cellphone.
--- NOTE | 2019-11-15 18:08 | NUR ---
belongings Patients belongings picked up by . Cellphone and wound care rn left at bedside. aware during hospital stay and transfer staff is not responsible for any lost items. verbalized understanding. See belongings sheet. also signed acknowledgement for transfer.
--- NOTE | 2019-11-15 18:10 | NUR ---
Tube feedings tolerated well 10cc of gastric residual noted. Feedings remain at 15ml/hr. Aspiration precautions remain in place.
--- NOTE | 2019-11-15 18:35 | NUR ---
KARUNA CALLED WITH BED ASSIGNMENT: [facility] [id number] REPORT [phone] TEXTILE MACHINE MECHANIC TIME 1999. DR. BROWN, PHANI BHAKTA - LEANN UPDATED AND AWARE
[2019-11-15] MEDS: NOREPINEPHRINE 8 MG/250ML KIT 250 ML IV SCH (18:42)
--- NOTE | 2019-11-15 19:15 | NUR ---
OPENING NOTE RECEIVED REPORT FROM FAWAD ORTEGA. PATIENT BEING TRANSFERED TO [facility]. ATTEMPT MADE TO CONTACT HOSPITAL. FOR MORE INFORMATION SEE INTERVENTIONS. FOR GTTS AND THEIR TITRATIONS SEE IV SPREAD SHEET. ALL FALL AND SAFETY PRECAUTIONS IN PLACE.
--- NOTE | 2019-11-15 20:30 | NUR ---
EMS AT BEDSIDE TO TRANSFER PATIENT REPORT GIVEN TO CRITICAL CARE TRANSPORT
--- NOTE | 2019-11-15 21:19 | NUR ---
EMS LEFT WITH PATIENT REPORT GIVEN TO NURSE BHUPINDER ZAPATA @ [facility] PHONE NUMBER [phone] BED ASSIGNMENT [id number] ICU ACCEPTING DOCTOR SUJIT CALLED LEANN AND UPDATED ON PATIENT STATUS. ALL QUESTIONS ADDRESSED AT THIS TIME
--- NOTE | 2019-11-16 09:15 | NUR ---
outside sales professional 11/15/19 While outside sales professional I received a page from Gracie ORTEGA stating patient has an order to transfer to [place]. Advised Gracie to fax transfer order to [place]. Patient was discharged and transferred to [place]. Addendum: 11/16/19 at 0917 by Kenya STARKEY Amended: Links added.
== END 2019-11-15 21:20 | disposition short-term general hospital (02) | DRG 720 ==
LOC: EDUNIT# 19:14 → ER 19:14 → EDBD 19:14 → TELE 19:15 → ICU WEST 11-11 15:00
PROVIDERS: ADMIT Nurse Practitioner; ATTEND Internal Medicine
PROC: 02H633Z Insertion of Infusion Device into Right Atrium, Percutaneous Approach (ICD-10-PCS; principal; 2019-11-10)
PROC: 5A09357 Assistance with Respiratory Ventilation, Less than 24 Consecutive Hours, Continuous Positive Airway Pressure (ICD-10-PCS; 2019-11-10)
PROC: 5A1955Z Respiratory Ventilation, Greater than 96 Consecutive Hours (ICD-10-PCS; 2019-11-11)
PROC: 0BH17EZ Insertion of Endotracheal Airway into Trachea, Via Natural or Artificial Opening (ICD-10-PCS; 2019-11-11)
PROC: 0W9930Z Drainage of Right Pleural Cavity with Drainage Device, Percutaneous Approach (ICD-10-PCS; 2019-11-11)
PROC: 0BH18EZ Insertion of Endotracheal Airway into Trachea, Via Natural or Artificial Opening Endoscopic (ICD-10-PCS; 2019-11-14)
PROC: 0B9K8ZZ Drainage of Right Lung, Via Natural or Artificial Opening Endoscopic (ICD-10-PCS; 2019-11-14)
DX: A41.9 Sepsis, unspecified organism (principal); I21.A1 Myocardial infarction type 2; E43 Unspecified severe protein-calorie malnutrition; J96.21 Acute and chronic respiratory failure with hypoxia; R65.21 Severe sepsis with septic shock; N17.0 Acute kidney failure with tubular necrosis; J15.6 Pneumonia due to other Gram-negative bacteria; I50.33 Acute on chronic diastolic (congestive) heart failure; E87.1 Hypo-osmolality and hyponatremia; E87.4 Mixed disorder of acid-base balance; J93.9 Pneumothorax, unspecified; D64.9 Anemia, unspecified; E03.9 Hypothyroidism, unspecified; E83.119 Hemochromatosis, unspecified; E87.6 Hypokalemia; F41.9 Anxiety disorder, unspecified; M19.90 Unspecified osteoarthritis, unspecified site; F32.9 Major depressive disorder, single episode, unspecified; K74.60 Unspecified cirrhosis of liver; E78.5 Hyperlipidemia, unspecified; J98.11 Atelectasis; M79.7 Fibromyalgia; J43.9 Emphysema, unspecified; Z90.2 Acquired absence of lung [part of]; Z88.8 Allergy status to other drugs, medicaments and biological substances; Z03.818 Encounter for observation for suspected exposure to other biological agents ruled out; Z68.21 Body mass index [BMI] 21.0-21.9, adult
CPT/HCPCS: 31500; 31622; 32555; 36415; 36569; 36600; 71045; 71275; 80048; 80053; 80061; 80202; 80307; 81001; 82728; 82805; 83605; 83615; 83735; 83880; 84100; 84132; 84443; 84484; 85007; 85025; 85027; 85379; 85610; 85730; 86141; 87040; 87070; 87081; 87086; 87205; 87804; 87880; 93005; 93306; 94002; 94003; 94640; 99291; C9113; G0378; J0171; J0330; J2248; J2250; J2543; J2704; J3480; J7060; P9047

== ENCOUNTER 2022-03-25 05:46 | Inpatient (IN) | payer MEDICAID ==
[2022-03-25] VITALS (18 sets, daily range): BP systolic 103–172; BP diastolic 55–87
[~2022-03-25] VITALS: Ht 157.5 cm; Wt 50.6 kg
[~2022-03-25 05:46] MED LIST: HYDR2TAB58 PO; LORA0.5T20 PO; MORP30TA PO
[2022-03-25 07:53] LABS: Albumin 3.4 g/dL (3.4-5.0); Calcium 7.3 mg/dL (8.5-10.1)
[2022-03-25 07:59] LABS: BUN/Creatinine Ratio 25.8; Bilirubin, Total 0.6 mg/dL (0.2-1.0); Total Protein 6.1 g/dL (6.4-8.2)
[2022-03-25 08:05] LABS: Potassium 6.1 mmol/L (3.5-5.1)
[2022-03-25] MEDS ORDERED: INSULIN LANTUS (GLARGINE) 1 /0.01ml (100units/ml) SC ONE (08:15)
[2022-03-25] MEDS ORDERED: DEXTROSE (50%) 50ML SYRG IV PRN (08:15)
[2022-03-25] MEDS ORDERED: SODIUM CHLORIDE 0.9% 1,000 ML IVB ONE (08:15)
[2022-03-25] MEDS ORDERED: PROCHLORPERAZINE MALEATE 10 MG TAB PO ONE (08:15)
[2022-03-25 08:17] LABS: Basophils # (auto) 0.1 10 ^3/uL (0-0.2); Basophils % (auto) 0.5 % (0.0-2.0); Eosinophils # (auto) 0 10 ^3/uL (0-0.8); Hematocrit 41.5 % (36.0-46.0); Lymphocytes # (auto) 1.4 10 ^3/uL (0.4-5.4); Lymphocytes % (auto) 6.3 % (10.0-50.0); Mean Corpuscular Hemoglobin 29.5 pg (28.0-32.0); Mean Corpuscular Hgb Conc. 31.3 g/dL (32.0-36.0); Monocytes # (auto) 1.8 10 ^3/uL (0-1.3); Neutrophils # (auto) 19.5 10 ^3/uL (1.6-8.6); Neutrophils % (auto) 85.2 % (37.0-80.0); Red Blood Cells 4.42 10^6/uL (4.0-5.20); Red Cell Distribution Width 13.5 % (11.8-14.3); White Blood Cell 22.9 10^3/uL (4.4-10.8)
[2022-03-25] MEDS ORDERED: ONDANSETRON HCL 4 MG/2 ML VIAL IV ONE (08:30)
[2022-03-25] MEDS ORDERED: MORPHINE SULFATE INJ 2 MG/ml SYRG IM ONE (08:30)
[2022-03-25] MEDS: InsuLIN R (HUMAN) 100 UNITS in SODIUM CHL 0.9% 99 ML IV SCH (08:42)
[2022-03-25] MEDS: ACCU-CHEK COMFORT CURVE STRIP VI SCH ×10 (08:45→22:30)
[2022-03-25] MEDS: SODIUM CHLORIDE 0.9% 1,000 ML IV SCH ×4 (08:46→20:55)
[2022-03-25 08:52] LABS: Urine Amorphous Crystal FEW /hpf (None Seen); Urine Bacteria FEW /hpf (None Seen); Urine Blood 2+ /uL (Negative); Urine Specific Gravity 1.015 (1.001-1.035); Urine WBC 2 /hpf (0 - 5)
[2022-03-25] MEDS ORDERED: SODIUM BICARBONATE 8.4 % INJ 50ML VIAL IV ONE ×2 (09:00→09:15)
[2022-03-25] MEDS ORDERED: LORazepam 2MG/ML-1ML VIAL ONE (10:04)
[2022-03-25] MEDS ORDERED: LORazepam 2MG/ML-1ML VIAL IV ONE (10:15)
[2022-03-25] MEDS ORDERED: MIDAZOLAM HCL 5 MG/ML-1ML VIAL IV ONE ×2 (12:00→12:15)
[2022-03-25] MEDS: MIDAZOLAM DRIP 50 mg/50mL 50 ML IV SCH ×4 (12:03→23:52)
[2022-03-25] MEDS ORDERED: SODIUM CHLORIDE 0.9% 1,000 ML IV SCH (12:15)
[2022-03-25] MEDS: fentaNYL Drip 2500mCg/250mlNS 250 ML IV SCH (13:06)
[2022-03-25] MEDS ORDERED: NITROGLYCERIN 0.4 MG SL TAB SL PRN (13:15)
[2022-03-25] MEDS ORDERED: MORPHINE SULFATE INJ 2 MG/ml SYRG IV PRN (13:15)
[2022-03-25] MEDS ORDERED: ALBUTEROL SULF 2.5 MG/0.5ML(0.5%) NEB SOLN NEB PRN ×2 (13:30→17:30)
[2022-03-25] MEDS ORDERED: AZITHROMYCIN 500MG/ 250ML 250 ML IV ONE (13:30)
[2022-03-25] MEDS ORDERED: cefTRIAXone 1GM/50ML D5W 50 ML IV ONE (13:30)
[2022-03-25] MEDS ORDERED: IPRATROPIUM BROM 0.5 MG/2.5ML INH SOL NEB SCH ×2 (14:00→18:00)
[2022-03-25 14:10] LABS: BUN/Creatinine Ratio 30.1; Calcium 6.1 mg/dL (8.5-10.1); Potassium 3.4 mmol/L (3.5-5.1)
[2022-03-25 14:42] LABS: Alcohol, Urine < 3.0 mg/dL (0-10); Amphetamine Screen, Urine NEGATIVE (NEGATIVE); Barbiturate Scree,Urine POSITIVE (NEGATIVE); Benzodiazephine Screen, Urine NEGATIVE (NEGATIVE); Cannabinoid Screen, Urine NEGATIVE (NEGATIVE); Cocaine Screen, Urine NEGATIVE (NEGATIVE); Opiate Scree,Urine NEGATIVE (NEGATIVE); Phencyclidine Screen, Urine NEGATIVE (NEGATIVE)
[2022-03-25] MEDS: SODIUM BICARBONATE 50ML VIAL 150 ML in D5W 5% 1,000 ML IV SCH (15:25)
[2022-03-25] MEDS: NOREPINEPHRINE BITARTRATE 16 MG in SODIUM CHL 0.9% 234 ML IV SCH (16:49)
[2022-03-25] MEDS: PROPOFOL 100 ML IV SCH (16:50)
[2022-03-25] MEDS: POTASSIUM CHL 20MEQ/100ML 100 ML IV SCH ×2 (16:53→20:16)
[2022-03-25] MEDS ORDERED: IPRATROPIUM BROM 0.5 MG/2.5ML INH SOL NEB PRN ×2 (17:15→17:30)
[2022-03-25] MEDS ORDERED: ALBUTEROL SULF 2.5 MG/0.5ML(0.5%) NEB SOLN NEB SCH (18:00)
[2022-03-25 18:59] LABS: BUN/Creatinine Ratio 25.2; Calcium 6.5 mg/dL (8.5-10.1); Potassium 3.6 mmol/L (3.5-5.1)
[2022-03-25 19:00] LABS: Magnesium 1.6 mg/dL (1.6-2.6)
[2022-03-25 19:02] LABS: Phosphorus 1.4 mg/dL (2.5-4.90)
[2022-03-25 20:47] LABS: BUN/Creatinine Ratio 24.4; Calcium 6.3 mg/dL (8.5-10.1); Potassium 4.1 mmol/L (3.5-5.1)
[2022-03-26] VITALS (98 sets, daily range): BP systolic 66–138; BP diastolic 43–97
[2022-03-26] MEDS: ACCU-CHEK COMFORT CURVE STRIP VI SCH ×12 (01:51→23:58)
[2022-03-26] MEDS: InsuLIN R (HUMAN) 100 UNITS in SODIUM CHL 0.9% 99 ML IV SCH ×2 (03:17→07:21)
[2022-03-26] MEDS: SODIUM BICARBONATE 50ML VIAL 150 ML in D5W 5% 1,000 ML IV SCH (03:26)
[2022-03-26] MEDS: MIDAZOLAM DRIP 50 mg/50mL 50 ML IV SCH ×4 (03:27→21:29)
[2022-03-26] MEDS: SODIUM CHLORIDE 0.9% 1,000 ML IV SCH ×3 (03:35→22:38)
[2022-03-26 04:00] LABS: Basophils # (auto) 0 10 ^3/uL (0-0.2); Basophils % (auto) 0.2 % (0.0-2.0); Eosinophils # (auto) 0 10 ^3/uL (0-0.8); Hemoglobin 11.5 g/dL (12.2-16.2); Lymphocytes # (auto) 0.5 10 ^3/uL (0.4-5.4); Lymphocytes % (auto) 6.1 % (10.0-50.0); Mean Corpuscular Hemoglobin 30.5 pg (28.0-32.0); Mean Corpuscular Volume 84.6 fL (80.0-100.0); Monocytes # (auto) 0.7 10 ^3/uL (0-1.3); Monocytes % (auto) 8.5 % (0.0-12.0); Neutrophils # (auto) 7.3 10 ^3/uL (1.6-8.6); Neutrophils % (auto) 85.2 % (37.0-80.0); Red Blood Cells 3.78 10^6/uL (4.0-5.20); Red Cell Distribution Width 13.6 % (11.8-14.3); White Blood Cell 8.5 10^3/uL (4.4-10.8)
[2022-03-26 04:12] LABS: BUN/Creatinine Ratio 21.6; Calcium 6.4 mg/dL (8.5-10.1)
[2022-03-26] MEDS: PROPOFOL 100 ML IV SCH ×2 (04:22→14:59)
[2022-03-26] MEDS ORDERED: POTASSIUM CHL 20MEQ/100ML 100 ML IV ONE (05:30)
[2022-03-26] MEDS: CALCIUM GLUC 1,000mg/50ml-NS 50 ML IV SCH ×2 (06:00→07:50)
[2022-03-26] MEDS: NOREPINEPHRINE BITARTRATE 16 MG in SODIUM CHL 0.9% 234 ML IV SCH (09:59)
[2022-03-26] MEDS ORDERED: INSULIN LANTUS (GLARGINE) 1 /0.01ml (100units/ml) SC SCH (10:00)
[2022-03-26] MEDS: cefTRIAXone 1GM/50ML D5W 50 ML IV SCH (10:15)
[2022-03-26] MEDS: ENOXAPARIN SOD 40 MG/0.4 ML SYRINGE SC SCH (10:15)
[2022-03-26] MEDS ORDERED: D5W/SOD CHL 0.45%/KCL 20MEQ 1,000 ML IV SCH ×2 (10:15→13:15)
[2022-03-26] MEDS: fentaNYL Drip 2500mCg/250mlNS 250 ML IV SCH ×2 (10:16→22:39)
[2022-03-26] MEDS: AZITHROMYCIN 500MG/ 250ML 250 ML IV SCH (10:17)
[2022-03-26 12:40] LABS: BUN/Creatinine Ratio 14.7; Calcium 6.8 mg/dL (8.5-10.1); Potassium 3.5 mmol/L (3.5-5.1)
[2022-03-26] MEDS ORDERED: PANTOPRAZOLE 40 MG/10 ML VIAL INJ IV ONE (13:15)
[2022-03-26] MEDS ORDERED: DEXTROSE (50%) 50ML SYRG IV PRN (13:15)
[2022-03-26] MEDS: InsuLIN REG 1unit/0.01ml Soln (100units/ml) SC SCH ×3 (16:11→23:58)
[2022-03-26 20:36] LABS: BUN/Creatinine Ratio 13.9; Calcium 7.1 mg/dL (8.5-10.1)
[2022-03-26 21:04] LABS: Potassium 2.7 mmol/L (3.5-5.1)
[2022-03-26] MEDS ORDERED: POTASSIUM CHL 20MEQ/100ML 200 ML IV ONE (22:01)
[2022-03-26] MEDS: POTASSIUM CHL 20MEQ/100ML 100 ML IV SCH ×2 (22:16→23:58)
[2022-03-27] VITALS (94 sets, daily range): BP systolic 60–138; BP diastolic 54–85
[2022-03-27] MEDS: PROPOFOL 100 ML IV SCH (02:11)
[2022-03-27] MEDS: MIDAZOLAM DRIP 50 mg/50mL 50 ML IV SCH ×4 (02:44→19:00)
[2022-03-27] MEDS: ACCU-CHEK COMFORT CURVE STRIP VI SCH ×5 (03:43→20:18)
[2022-03-27] MEDS: InsuLIN REG 1unit/0.01ml Soln (100units/ml) SC SCH ×5 (03:45→20:18)
[2022-03-27 03:56] LABS: Basophils # (auto) 0 10 ^3/uL (0-0.2); Basophils % (auto) 0.2 % (0.0-2.0); Eosinophils # (auto) 0 10 ^3/uL (0-0.8); Hemoglobin 10.7 g/dL (12.2-16.2); Lymphocytes # (auto) 1.7 10 ^3/uL (0.4-5.4); Lymphocytes % (auto) 21.3 % (10.0-50.0); Mean Corpuscular Hemoglobin 30.4 pg (28.0-32.0); Mean Corpuscular Hgb Conc. 35.6 g/dL (32.0-36.0); Mean Corpuscular Volume 85.5 fL (80.0-100.0); Monocytes # (auto) 0.5 10 ^3/uL (0-1.3); Monocytes % (auto) 6.6 % (0.0-12.0); Neutrophils # (auto) 5.8 10 ^3/uL (1.6-8.6); Neutrophils % (auto) 71.9 % (37.0-80.0); Red Cell Distribution Width 13.9 % (11.8-14.3); White Blood Cell 8.1 10^3/uL (4.4-10.8)
[2022-03-27 04:27] LABS: BUN/Creatinine Ratio 12.1; Calcium 6.9 mg/dL (8.5-10.1); Potassium 3.6 mmol/L (3.5-5.1)
[2022-03-27] MEDS: SODIUM CHLORIDE 0.9% 1,000 ML IV SCH ×2 (08:47→12:42)
[2022-03-27] MEDS: cefTRIAXone 1GM/50ML D5W 50 ML IV SCH (08:47)
[2022-03-27] MEDS: PANTOPRAZOLE 40 MG/10 ML VIAL INJ IV SCH (10:16)
[2022-03-27] MEDS: ENOXAPARIN SOD 40 MG/0.4 ML SYRINGE SC SCH (10:16)
[2022-03-27] MEDS: AZITHROMYCIN 500MG/ 250ML 250 ML IV SCH (10:16)
[2022-03-27] MEDS: NOREPINEPHRINE BITARTRATE 16 MG in SODIUM CHL 0.9% 234 ML IV SCH (12:00)
[2022-03-27] MEDS: MORPHINE SULFATE INJ 2 MG/ml SYRG IV PRN ×3 (14:15→22:14)
[2022-03-27] MEDS ORDERED: LACTULOSE 20Gm/30ML SOLN PO ONE (15:00)
[2022-03-27] MEDS ORDERED: FLEET ENEMA(ADULT) 135 ML PR ONE (16:45)
[2022-03-27] MEDS: ACETAMINOPHEN 325 MG TAB PO PRN (20:36)
[2022-03-27] MEDS: INSULIN LANTUS (GLARGINE) 1 /0.01ml (100units/ml) SC SCH (22:00)
[2022-03-28] VITALS (18 sets, daily range): BP systolic 110–141; BP diastolic 67–85
[2022-03-28] MEDS: MIDAZOLAM DRIP 50 mg/50mL 50 ML IV SCH
[2022-03-28] MEDS: ACCU-CHEK COMFORT CURVE STRIP VI SCH ×7 (00:16→23:56)
[2022-03-28] MEDS: SODIUM CHLORIDE 0.9% 1,000 ML IV SCH (00:17)
[2022-03-28] MEDS: MORPHINE SULFATE INJ 2 MG/ml SYRG IV PRN ×2 (02:06→06:23)
[2022-03-28] MEDS ORDERED: LORazepam 0.5 MG TAB PO PRN ×2 (04:30→12:15)
[2022-03-28] MEDS: InsuLIN REG 1unit/0.01ml Soln (100units/ml) SC SCH ×7 (04:40→23:56)
[2022-03-28 06:05] LABS: Anion Gap 9 (5-15); BUN/Creatinine Ratio 6.6; Blood Urea Nitrogen 4 mg/dL (7-18); Calcium 7.3 mg/dL (8.5-10.1); Carbon Dioxide 24 mmol/L (21-32); Chloride 102 mmol/L (98-107); GFR African American 132 mL/min; GFR Non-African American 109 mL/min; Glucose 333 mg/dL (74-106); Sodium 135 mmol/L (136-145)
[2022-03-28 06:15] LABS: Potassium 2.9 mmol/L (3.5-5.1)
[2022-03-28 06:54] LABS: Basophils # (auto) 0 10 ^3/uL (0-0.2); Basophils % (auto) 0.3 % (0.0-2.0); Eosinophils # (auto) 0 10 ^3/uL (0-0.8); Hematocrit 26.7 % (36.0-46.0); Hemoglobin 9.6 g/dL (12.2-16.2); Lymphocytes # (auto) 1.1 10 ^3/uL (0.4-5.4); Lymphocytes % (auto) 18.3 % (10.0-50.0); Mean Corpuscular Hemoglobin 30.8 pg (28.0-32.0); Mean Corpuscular Hgb Conc. 35.9 g/dL (32.0-36.0); Mean Corpuscular Volume 85.9 fL (80.0-100.0); Monocytes # (auto) 0.3 10 ^3/uL (0-1.3); Monocytes % (auto) 4.7 % (0.0-12.0); Neutrophils # (auto) 4.5 10 ^3/uL (1.6-8.6); Neutrophils % (auto) 76.7 % (37.0-80.0); Red Blood Cells 3.11 10^6/uL (4.0-5.20); Red Cell Distribution Width 13.7 % (11.8-14.3); White Blood Cell 5.9 10^3/uL (4.4-10.8)
[2022-03-28] MEDS: ENOXAPARIN SOD 40 MG/0.4 ML SYRINGE SC SCH (07:33)
[2022-03-28] MEDS: PANTOPRAZOLE 40 MG/10 ML VIAL INJ IV SCH (10:10)
[2022-03-28] MEDS: cefTRIAXone 1GM/50ML D5W 50 ML IV SCH (10:10)
[2022-03-28] MEDS: HYDROmorphone HCL 2 MG TAB PO PRN ×4 (10:11→22:58)
[2022-03-28] MEDS: AZITHROMYCIN 500MG/ 250ML 250 ML IV SCH (11:00)
[2022-03-28] MEDS ORDERED: POTASSIUM EFFERVESENT TAB 25 MEQ PO ONE (11:30)
[2022-03-28] MEDS: ACETAMINOPHEN 325 MG TAB PO PRN (11:32)
[2022-03-28] MEDS ORDERED: POTASSIUM CHL 20 Meq TABLET PO ONE (11:45)
[2022-03-28] MEDS: POTASSIUM CHL 20MEQ/100ML 100 ML IV SCH ×2 (12:10→13:25)
[2022-03-28] MEDS: INSULIN LANTUS (GLARGINE) 1 /0.01ml (100units/ml) SC SCH (22:00)
[2022-03-29] MEDS ORDERED: PANTOPRAZOLE 40 MG TAB PO SCH (10:00)
== END 2022-03-29 00:15 | disposition short-term general hospital (02) | DRG 720 ==
LOC: ER 05:46 → EDBD 05:46 → OVERFLOW 13:11 → ICU WEST 15:38 → TELE-WESTW 03-28 04:05
PROVIDERS: ADMIT Registered Nurse; ATTEND Internal Medicine
PROC: 06HM33Z Insertion of Infusion Device into Right Femoral Vein, Percutaneous Approach (ICD-10-PCS; principal; 2022-03-25)
PROC: 5A1945Z Respiratory Ventilation, 24-96 Consecutive Hours (ICD-10-PCS; 2022-03-25)
PROC: 02HV33Z Insertion of Infusion Device into Superior Vena Cava, Percutaneous Approach (ICD-10-PCS; 2022-03-25)
PROC: B548ZZA Ultrasonography of Superior Vena Cava, Guidance (ICD-10-PCS; 2022-03-25)
PROC: 03HY32Z Insertion of Monitoring Device into Upper Artery, Percutaneous Approach (ICD-10-PCS; 2022-03-25)
PROC: 4A133B1 Monitoring of Arterial Pressure, Peripheral, Percutaneous Approach (ICD-10-PCS; 2022-03-25)
PROC: 4A133J1 Monitoring of Arterial Pulse, Peripheral, Percutaneous Approach (ICD-10-PCS; 2022-03-25)
PROC: 0BH17EZ Insertion of Endotracheal Airway into Trachea, Via Natural or Artificial Opening (ICD-10-PCS; 2022-03-25)
PROC: 05HB33Z Insertion of Infusion Device into Right Basilic Vein, Percutaneous Approach (ICD-10-PCS; 2022-03-28)
PROC: B54MZZA Ultrasonography of Right Upper Extremity Veins, Guidance (ICD-10-PCS; 2022-03-28)
DX: A41.9 Sepsis, unspecified organism (principal); N17.0 Acute kidney failure with tubular necrosis; J96.20 Acute and chronic respiratory failure, unspecified whether with hypoxia or hypercapnia; E10.10 Type 1 diabetes mellitus with ketoacidosis without coma; J15.6 Pneumonia due to other Gram-negative bacteria; E43 Unspecified severe protein-calorie malnutrition; D69.6 Thrombocytopenia, unspecified; E10.22 Type 1 diabetes mellitus with diabetic chronic kidney disease; E03.9 Hypothyroidism, unspecified; Z68.22 Body mass index [BMI] 22.0-22.9, adult; M79.7 Fibromyalgia; D64.9 Anemia, unspecified; E87.8 Other disorders of electrolyte and fluid balance, not elsewhere classified; E86.9 Volume depletion, unspecified; G89.29 Other chronic pain; N13.30 Unspecified hydronephrosis; N18.9 Chronic kidney disease, unspecified; J43.9 Emphysema, unspecified; E86.0 Dehydration; F32.A Depression, unspecified; F41.9 Anxiety disorder, unspecified; E87.5 Hyperkalemia; E87.6 Hypokalemia; F17.210 Nicotine dependence, cigarettes, uncomplicated; Z20.822 Contact with and (suspected) exposure to COVID-19; Z90.710 Acquired absence of both cervix and uterus; Z91.14 Patient's other noncompliance with medication regimen; Z90.49 Acquired absence of other specified parts of digestive tract; Z79.4 Long term (current) use of insulin
CPT/HCPCS: 31500; 36415; 36556; 36600; 70450; 71045; 74018; 76775; 80048; 80053; 80307; 81001; 82010; 82306; 82570; 82805; 82962; 83605; 83690; 83735; 83970; 84100; 84443; 84484; 85025; 85610; 87040; 87070; 87077; 87081; 87086; 87186; 87205; 87426; 93005; 94002; 94003; 94640; 96361; 96365; 96368; 96372; 96375; 99291; C9113; G0378; J0696; J1815; J2250; J2405; J2704; J3480; J7042; J7060; Q0164

== ENCOUNTER 2022-07-12 07:47 | Inpatient (IN) | payer MEDICAID, OTHER ==
[~2022-07-12] VITALS: Ht 167.6 cm; Wt 52.0 kg
[2022-07-12] MEDS ORDERED: DEXTROSE (50%) 50ML SYRG IV PRN ×2 (08:00→22:00)
[2022-07-12] MEDS ORDERED: SODIUM CHLORIDE 0.9% 1,000 ML IVB ONE (08:00)
[2022-07-12] MEDS ORDERED: INSULIN LANTUS (GLARGINE) 1 /0.01ml (100units/ml) SC ONE ×2 (08:00→17:15)
[2022-07-12] MEDS ORDERED: InsuLIN R (HUMAN) 100 UNITS in SODIUM CHL 0.9% 99 ML IV SCH (08:00)
[2022-07-12 08:28] LABS: Basophils # (auto) 0.1 10 ^3/uL (0-0.2); Eosinophils # (auto) 0 10 ^3/uL (0-0.8); Lymphocytes % (auto) 7.3 % (10.0-50.0); Mean Corpuscular Volume 96.6 fL (80.0-100.0); Red Cell Distribution Width 15.1 % (11.8-14.3)
[2022-07-12 08:29] LABS: Basophils % (auto) 0.4 % (0.0-2.0); Hematocrit 46.9 % (36.0-46.0); Hemoglobin 14.5 g/dL (12.2-16.2); Mean Corpuscular Hemoglobin 29.8 pg (28.0-32.0); Mean Corpuscular Hgb Conc. 30.9 g/dL (32.0-36.0); Monocytes # (auto) 0.6 10 ^3/uL (0-1.3); Monocytes % (auto) 4.3 % (0.0-12.0); Neutrophils # (auto) 12.4 10 ^3/uL (1.6-8.6); Red Blood Cells 4.85 10^6/uL (4.0-5.20); White Blood Cell 14.1 10^3/uL (4.4-10.8)
[2022-07-12] MEDS ORDERED: MORPHINE SULFATE 4 MG/ML SYR/VIAL IV ONE (08:45)
[2022-07-12] MEDS ORDERED: ONDANSETRON HCL 4 MG/2 ML VIAL IV ONE ×2 (08:45→11:30)
[2022-07-12 08:46] LABS: Albumin 4.4 g/dL (3.4-5.0); Calcium 8.8 mg/dL (8.5-10.1); Magnesium 2.7 mg/dL (1.6-2.6)
[2022-07-12 08:57] LABS: BUN/Creatinine Ratio 13.6; Bilirubin, Total 0.9 mg/dL (0.2-1.0); Total Protein 7.1 g/dL (6.4-8.2)
[2022-07-12 09:11] LABS: Potassium 6.4 mmol/L (3.5-5.1)
[2022-07-12] MEDS ORDERED: SODIUM BICARBONATE 8.4 % INJ 50ML VIAL IV ONE (09:30)
[2022-07-12 09:47] LABS: Urine Bacteria NONE SEEN /hpf (None Seen); Urine Blood Negative /uL (Negative); Urine Mucus FEW (None Seen); Urine Specific Gravity 1.029 (1.001-1.035); Urine WBC 1 /hpf (0 - 5)
[2022-07-12] MEDS ORDERED: SODIUM CHLORIDE 0.9% 500 ML IV ONE (10:00)
[2022-07-12] MEDS: ACCU-CHEK COMFORT CURVE STRIP VI SCH ×9 (11:08→22:09)
[2022-07-12] MEDS ORDERED: HYDROmorphone HCL 2 MG/ML VL/or syr IV ONE ×2 (11:30→16:45)
[2022-07-12 11:44] LABS: Lactic Acid w/Reflex 4.9 mmol/L (0.4-2.0)
[2022-07-12] MEDS ORDERED: SODIUM CHLORIDE 0.9% 1,000 ML IV ONE ×2 (12:30)
[2022-07-12] MEDS ORDERED: TEMAZEPAM 15 MG CAP PO PRN (12:30)
[2022-07-12] MEDS ORDERED: HYDROcodone-ACET 5/325MG TAB PO PRN (12:30)
[2022-07-12] MEDS ORDERED: ACETAMINOPHEN 325 MG TAB PO PRN (12:30)
[2022-07-12] MEDS ORDERED: DOCUSATE SOD 100 MG CAP PO PRN (12:30)
[2022-07-12] MEDS ORDERED: MORPHINE SULFATE INJ 2 MG/ml SYRG IV PRN (12:30)
[2022-07-12] MEDS ORDERED: ONDANSETRON HCL 4 MG/2 ML VIAL IV PRN (12:30)
[2022-07-12] MEDS ORDERED: LORazepam 0.5 MG TAB PO PRN (12:30)
[2022-07-12] MEDS: SODIUM CHLORIDE 0.9% 1,000 ML IV SCH ×2 (13:32→18:57)
[2022-07-12 15:13] LABS: BUN/Creatinine Ratio 16.1; Calcium 7.5 mg/dL (8.5-10.1); Potassium 4.4 mmol/L (3.5-5.1)
[2022-07-12] MEDS ORDERED: SODIUM CHLORIDE 0.9% 50 ML IV SCH (16:45)
[2022-07-12] MEDS ORDERED: D5W/SOD CHL 0.45% 1,000 ML IV SCH ×2 (17:15→22:00)
[2022-07-12 21:43] LABS: Albumin 2.8 g/dL (3.4-5.0); BUN/Creatinine Ratio 15.7; Calcium 6.6 mg/dL (8.5-10.1); Potassium 3.8 mmol/L (3.5-5.1)
[2022-07-12 21:46] LABS: Bilirubin, Total 0.3 mg/dL (0.2-1.0); Total Protein 5.2 g/dL (6.4-8.2)
[2022-07-12] MEDS: InsuLIN REG 1unit/0.01ml Soln (100units/ml) SC SCH (22:14)
[2022-07-13] MEDS: SODIUM CHLORIDE 0.9% 1,000 ML IV SCH ×3 (01:50→15:10)
[2022-07-13] MEDS: ACCU-CHEK COMFORT CURVE STRIP VI SCH ×4 (03:39→16:00)
[2022-07-13] MEDS ORDERED: FAMOTIDINE (10MG/ML) 2ML VL IV ONE (03:45)
[2022-07-13] MEDS ORDERED: MORPHINE SULFATE INJ 2 MG/ml SYRG IV PRN (03:45)
[2022-07-13] MEDS: InsuLIN REG 1unit/0.01ml Soln (100units/ml) SC SCH ×4 (03:47→16:00)
[2022-07-13] MEDS ORDERED: INSULIN LANTUS (GLARGINE) 1 /0.01ml (100units/ml) SC SCH (10:00)
[2022-07-13] MEDS ORDERED: FAMOTIDINE (10MG/ML) 2ML VL IV SCH (10:00)
[2022-07-13] MEDS ORDERED: IPRATROPIUM BROM 0.5 MG/2.5ML INH SOL NEB ONE (12:00)
[2022-07-13] MEDS ORDERED: cefTRIAXone 1GM/50ML D5W 50 ML IV ONE (12:00)
[2022-07-13] MEDS ORDERED: PANTOPRAZOLE 40 MG TAB PO ONE (12:00)
[2022-07-13] MEDS ORDERED: ALBUTEROL SULF 2.5 MG/0.5ML(0.5%) NEB SOLN NEB ONE (12:00)
[2022-07-13 13:20] VITALS: BP 111/67
[2022-07-13] MEDS ORDERED: HYDROcodone-ACET 5/325MG TAB PO PRN (13:45)
[2022-07-13 15:12] VITALS: BP 127/80
[2022-07-13 15:15] LABS: Basophils # (auto) 0 10 ^3/uL (0-0.2); Basophils % (auto) 0.2 % (0.0-2.0); Eosinophils # (auto) 0 10 ^3/uL (0-0.8); Hematocrit 39.4 % (36.0-46.0); Hemoglobin 13.1 g/dL (12.2-16.2); Lymphocytes # (auto) 0.9 10 ^3/uL (0.4-5.4); Lymphocytes % (auto) 7.6 % (10.0-50.0); Mean Corpuscular Hemoglobin 30.2 pg (28.0-32.0); Mean Corpuscular Hgb Conc. 33.3 g/dL (32.0-36.0); Mean Corpuscular Volume 90.7 fL (80.0-100.0); Monocytes # (auto) 0.6 10 ^3/uL (0-1.3); Monocytes % (auto) 5.3 % (0.0-12.0); Neutrophils # (auto) 9.9 10 ^3/uL (1.6-8.6); Neutrophils % (auto) 86.9 % (37.0-80.0); Red Blood Cells 4.35 10^6/uL (4.0-5.20); Red Cell Distribution Width 14.2 % (11.8-14.3); White Blood Cell 11.4 10^3/uL (4.4-10.8)
[2022-07-13 15:33] LABS: Alanine Aminotransferase 9 U/L (13-56); Albumin 2.6 g/dL (3.4-5.0); Anion Gap 6 (5-15); Aspartate Aminotransferase 10 U/L (15-37); BUN/Creatinine Ratio 9.9; Blood Urea Nitrogen 10 mg/dL (7-18); Calcium 7.2 mg/dL (8.5-10.1); Carbon Dioxide 23 mmol/L (21-32); Chloride 99 mmol/L (98-107); GFR African American 73 mL/min; GFR Non-African American 61 mL/min; Potassium 4.7 mmol/L (3.5-5.1); Sodium 128 mmol/L (136-145)
[2022-07-13 15:35] LABS: Alkaline Phosphatase 98 U/L (45-117); Bilirubin, Total 0.2 mg/dL (0.2-1.0); Total Protein 5.5 g/dL (6.4-8.2)
[2022-07-13 16:04] LABS: Glucose 640 mg/dL (74-106)
[2022-07-13] MEDS ORDERED: IPRATROPIUM BROM 0.5 MG/2.5ML INH SOL NEB SCH (18:00)
[2022-07-13] MEDS ORDERED: ALBUTEROL SULF 2.5 MG/0.5ML(0.5%) NEB SOLN NEB SCH (18:00)
[2022-07-14] MEDS ORDERED: cefTRIAXone 1GM/50ML D5W 50 ML IV SCH (09:00)
[2022-07-14] MEDS ORDERED: PANTOPRAZOLE 40 MG TAB PO SCH (10:00)
== END 2022-07-13 16:00 | disposition left against medical advice (07) | DRG 420 ==
LOC: ER 07:47 → EDBD 07:47 → TELE 12:39 → TELE-E-ADS 07-13 13:20
PROVIDERS: ADMIT Hospitalist; ATTEND Internal Medicine
DX: E11.10 Type 2 diabetes mellitus with ketoacidosis without coma (principal); R64 Cachexia; E03.9 Hypothyroidism, unspecified; E86.0 Dehydration; E87.5 Hyperkalemia; J44.9 Chronic obstructive pulmonary disease, unspecified; Z20.822 Contact with and (suspected) exposure to COVID-19; F17.210 Nicotine dependence, cigarettes, uncomplicated; Z53.29 Procedure and treatment not carried out because of patient's decision for other reasons; M79.7 Fibromyalgia; Z90.49 Acquired absence of other specified parts of digestive tract; Z79.4 Long term (current) use of insulin; Z90.710 Acquired absence of both cervix and uterus; Z87.442 Personal history of urinary calculi
CPT/HCPCS: 36415; 36600; 71045; 80048; 80053; 81001; 82010; 82805; 82962; 83605; 83735; 85025; 87040; 87426; 93005; 96361; 96365; 96372; 96375; 96376; 99291; G0378; J0696; J1815; J2405; J3490

== ENCOUNTER 2022-11-14 19:37 | Emergency (ER) | payer MEDICAID ==
[~2022-11-14] VITALS: Ht 167.6 cm; Wt 50.0 kg
[~2022-11-14 19:37] MED LIST changes: +LORA-1121 PO; -LORA0.5T20 PO
[2022-11-14] MEDS ORDERED: HYDROcodone-ACET 10/325MG TAB PO ONE (20:15)
[2022-11-14 21:05] VITALS: BP 115/69
== END 2022-11-14 21:15 | disposition left against medical advice (07) ==
LOC: ER 19:37 → EDBD 19:37 → ER 21:15
DX: R07.81 Pleurodynia (principal); F41.9 Anxiety disorder, unspecified; M19.90 Unspecified osteoarthritis, unspecified site; J44.9 Chronic obstructive pulmonary disease, unspecified; F32.9 Major depressive disorder, single episode, unspecified; E11.9 Type 2 diabetes mellitus without complications; F17.210 Nicotine dependence, cigarettes, uncomplicated; Z90.49 Acquired absence of other specified parts of digestive tract; Z90.710 Acquired absence of both cervix and uterus; Z88.6 Allergy status to analgesic agent; W01.0XXA Fall on same level from slipping, tripping and stumbling without subsequent striking against object, initial encounter; Y93.89 Activity, other specified; Y92.89 Other specified places as the place of occurrence of the external cause; Y99.8 Other external cause status
CPT/HCPCS: 71250; 93005